=== PATIENT | male | born 1970 | race Asian ===

== ENCOUNTER 2018-09-04 21:26 | Emergency (ER) | payer SELFPAY, OTHER ==
[2018-09-04] MEDS: SODIUM CHLORIDE 0.9% 1L BAG IV* (23:54)
[2018-09-04 23:59] LABS: ADD MAN DIFF? NO
[2018-09-05 00:01] LABS: WHITE BLOOD COUNT 21.1 10^3/ul (4.8-10.8)
[2018-09-05 00:01] LABS: ABNORMAL IP MESSAGE 1; BASOPHILS % 0.1 % (0.0-2.0); HEMATOCRIT 45.7 % (42.0-52.0); HEMOGLOBIN 15.2 g/dl (14.0-18.0); LYMPHOCYTES # 0.6 10^3/ul (0.8-2.9); LYMPHOCYTES % 2.7 % (15.0-51.0); MEAN CORPUSCULAR HEMOGLOBIN 28.4 pg (29.0-33.0); MEAN CORPUSCULAR HGB CONC 33.3 g/dl (32.0-37.0); MEAN CORPUSCULAR VOLUME 85.4 fl (82.0-101.0); MEAN PLATELET VOLUME 10.4 fl (7.4-10.4); MONOCYTE # 0.9 10^3/ul (0.3-0.9); MONOCYTES % 4.1 % (0.0-11.0); NEUTROPHIL # 19.5 10^3/ul (1.6-7.5); NEUTROPHILS % 92.5 % (39.0-77.0); PLATELET COUNT 215 10^3/UL (140-415); POSITIVE DIFF @See below; RED BLOOD COUNT 5.35 10^6/ul (4.70-6.10); RED CELL DISTRIBUTION WIDTH 12.9 % (11.5-14.5)
[2018-09-05] MEDS: AZTREONAM 1 GM/NS (PMX) 50 ML IVPB (00:04)
[2018-09-05 00:09] LABS: ADD UMIC YES; UR ASCORBIC ACID 40 mg/dL (NEGATIVE); UR BACTERIA MODERATE /HPF (NONE SEEN); UR BILIRUBIN (Dip) NEGATIVE (NEGATIVE); UR BLOOD (Dip) 3+ mg/dL (NEGATIVE); UR CLARITY SLIGHTLY CLOUDY (CLEAR); UR COLOR YELLOW (YELLOW); UR GLUCOSE (Dip) NEGATIVE (NEGATIVE); UR KETONES (Dip) TRACE mg/dL (NEGATIVE); UR LEUKOCYTE ESTERASE (Dip) NEGATIVE Leu/ul (NEGATIVE); UR MUCUS FEW /HPF (NONE SEEN); UR NITRITE (Dip) NEGATIVE (NEGATIVE); UR RBC 90 /HPF (0-5); UR SPECIFIC GRAVITY (Dip) 1.019 (1.003-1.030); UR TOTAL PROTEIN (Dip) 1+ mg/dl (NEGATIVE); UR UROBILINOGEN (Dip) NEGATIVE (NEGATIVE); UR WBC 4 /HPF (0-5)
[2018-09-05 00:20] LABS: ALANINE AMINOTRANSFERASE 30 IU/L (13-69); ALBUMIN 4.5 g/dl (3.3-4.9); ALKALINE PHOSPHATASE 70 IU/L (42-121); ANION GAP 15 (5-13); ASPARTATE AMINO TRANSFERASE 45 IU/L (15-46); BLOOD UREA NITROGEN 18 mg/dl (7-20); CALCIUM 10.9 mg/dl (8.4-10.2); CARBON DIOXIDE 22 mmol/L (21-31); CHLORIDE 102 mmol/L (97-110); CREATININE 1.91 mg/dl (0.61-1.24); Estimated GFR 38 mL/min (>60); GLUCOSE 98 mg/dl (70-220); LIPASE 57 U/L (23-300); POTASSIUM 3.9 mmol/L (3.5-5.1); SODIUM 139 mmol/L (135-144); TOTAL PROTEIN 7.7 g/dl (6.1-8.1)
[2018-09-05] MEDS: morphine 4 MG/ML VIAL IV (00:23)
[2018-09-05] MEDS: ACETAMINOPHEN 325 MG TAB PO (00:23)
[2018-09-05] MEDS: ONDANSETRON 4 MG INJ IV (00:23)
[2018-09-05 00:24] LABS: INR 1.09; PROTIME 14.2 Sec (11.9-14.9); PT RATIO 1.1
[2018-09-05 00:32] LABS: TROPONIN-I < 0.012 ng/ml (0.000-0.120)
[2018-09-05] MEDS: VANCOMYCIN 1 GM (PMX) 250 ML IVPB (01:11)
== END 2018-09-05 03:20 | disposition left against medical advice (07) ==
LOC: E/R 09-05 03:20
DX: A41.9 Sepsis, unspecified organism (principal); R65.20 Severe sepsis without septic shock; N20.0 Calculus of kidney
CPT/HCPCS: 36415; 71045; 74176; 80053; 81001; 83605; 83690; 84484; 85025; 85610; 85730; 87040; 87086; 93005; 96365; 96375; 99291-25